=== PATIENT | female | born 1955 | race Caucasian/White ===

== ENCOUNTER 2017-12-01 23:07 | Emergency (ER) | payer SELFPAY ==
[2017-12-01 23:15] VITALS: BP 168/75; PULSE 75; TEMP 98.2; BMI 31.6
--- NOTE | 2017-12-02 00:54 | PDOC ---
History of Present Illness - General Chief Complaint: Blood Pressure Problem Stated Complaint: HYPERTENSION Time Seen by Provider: 12/02/17 00:12 - History of Present Illness Initial Comments: This 62-year-old woman with a history hypertension presents with family with several hour history of headache accompanied by nausea and dizziness. The patient is mainly [place]-speaking and her family is interpreting for her. 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 Headache began mid afternoon. Her appetite has been much decreased today and nausea began soon after onset of headache. Earlier this evening, she measured her blood pressure and it was high (systolic 180 range). She subsequently took her antihypertensive medication (amlodipine). She took her amlodipine just prior to presenting to the emergency room. Patient denies fever/chills, diarrhea, cough/shortness of breath. Past History - Past Medical History Allergies/Adverse Reactions: Allergies Allergy/AdvReac Type Severity Reaction Status Date / Time No Known Allergies Allergy Verified 12/01/17 23:09 Home Medications: Ambulatory Orders Amlodipine Besylate [Norvasc -] 10 mg PO DAILY 12/01/17 Amlodipine Besylate [Norvasc -] 10 mg PO DAILY #30 tablet 12/02/17 COPD: No CHF: No HTN: Yes - Suicide/Smoking/Psychosocial Hx Smoking History: Never smoked Have you smoked in the past 12 months: No Information on smoking cessation initiated: No Hx Alcohol Use: No Drug/Substance Use Hx: No Substance Use Type: None Review of Systems - Review of Systems Able to Perform ROS?: Yes Comments:: 12 point review of systems is negative except for what is noted in the history of present illness *Physical Exam - Vital Signs Last Vital Signs Temp Pulse Resp BP Pulse Ox 98.2 F 75 16 168/75 98 12/01/17 23:11 12/01/17 23:11 12/01/17 23:11 12/01/17 23:11 12/01/17 23:11 - Physical Exam Comments: GENERAL: Adult female, alert and oriented 3, in no acute distress HEAD: Normal with no signs of trauma. EYES: PERRLA, EOMI, sclera anicteric, conjunctiva clear. ENT: Ears normal, nares patent, oropharynx clear without exudates. Dry mucous membranes. NECK: Normal range of motion, supple without lymphadenopathy, JVD, or masses. LUNGS: Breath sounds equal, clear to auscultation bilaterally. No wheezes, and no crackles. HEART:Regular rate and rhythm, normal S1 and S2 without murmur, rub or gallop. ABDOMEN:.normal bowel sounds No guarding,tenderness or rebound.No masses No distention. EXTREMITIES: Normal range of motion, no edema. No clubbing or cyanosis. No erythema, or tenderness. NEUROLOGICAL: Cranial nerves II through XII grossly intact. Normal speech. No focal neurological deficits. MUSCULOSKELETAL: Back non-tender to palpation, no CVA tenderness SKIN: Warm, Dry, normal turgor, no rashes or lesions noted. Medical Decision Making - Medical Decision Making Although the patient presented with lightheadedness and headache, complaining of blood pressure elevation, the repeat measurement of her blood pressure reveals BP of 168/75. Neurologic exam is unremarkable as is the rest of her exam. Because of the presence of nausea with her headache, noncontrast head CT was performed to rule out acute pathologic intracranial process. Also, urinalysis sent. Noncontrast head CT reveals no direct evidence of acute intracranial process. Likewise, UA is unremarkable Patient given Tylenol 650 mg by mouth. Family with informs that she is out of her amlodipine. Amlodipine 10 mg daily prescription (#30) will be written. The patient will follow up with PMD in the next few days. return to ER if severe headache develops *DC/Admit/Observation/Transfer Diagnosis at time of Disposition: Headache Qualifiers: Headache type: unspecified Headache chronicity pattern: acute headache Intractability: not intractable Qualified Code(s): R51 - Headache Hypertension Qualifiers: Hypertension type: essential hypertension Qualified Code(s): I10 - Essential ( primary) hypertension - Discharge Dispostion Disposition: HOME Condition at time of disposition: Stable - Prescriptions Prescriptions: Amlodipine Besylate [Norvasc -] 10 mg PO DAILY #30 tablet - Referrals - Patient Instructions Printed Discharge Instructions: DI for Headache Additional Instructions: Continue high blood pressure medications as previously Tylenol as needed for headache as previously Follow-up with your general doctor within the next 3-4 days Return to ER if you have severe headache, persistent severe dizziness or vomiting - Post Discharge Activity
[2017-12-02 01:57] LABS: URINE APPEARANCE CLEAR; URINE BILIRUBIN NEGATIVE (<2.0 mg/dL); URINE COLOR COLORLESS; URINE GLUCOSE (UA) NEGATIVE (NEGATIVE); URINE KETONE NEGATIVE (NEGATIVE); URINE LEUK ESTERASE TRACE (NEGATIVE); URINE NITRITE NEGATIVE (NEGATIVE); URINE PROTEIN NEGATIVE (NEGATIVE); URINE UROBILINOGEN NEGATIVE mg/dL (0.2-1.0)
[2017-12-02 02:02] LABS: EPI CELLS RARE /HPF (FEW); URINE BACTERIA RARE /hpf (NONE SEEN)
[2017-12-02] MEDS ORDERED: ACETAMINOPHEN 325 MG TABLET (FP) PO ONE (02:39)
[2017-12-02] MEDS ORDERED: ACETAMINOPHEN 325 MG TABLET (FP) ONE (02:42)
== END 2017-12-02 02:49 | disposition home or self-care (01) ==
LOC: FER 23:07
DX: R05 Cough (principal); R51 Headache; I10 Essential (primary) hypertension
CPT/HCPCS: 70450-TC; 81003; 81015; 99281-25